=== PATIENT | male | born 1980 | race Caucasian/White ===

== ENCOUNTER 2020-10-02 07:42 | Emergency (ER) | payer OTHER ==
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
[2020-10-02] MEDS ORDERED: LIDOCAINE MPF 1%-EPI 1:200000 10 ML VIAL SUBQ STA (07:53)
[2020-10-02] MEDS ORDERED: LIDOCAINE 1%-EPI 1:100000 20 ML MDV SUBQ STA (08:02)
[2020-10-02] MEDS ORDERED: ACETAMINOPHEN 325 MG TABLET PO STA (09:25)
[2020-10-02] MEDS ORDERED: IBUPROFEN 600 MG TABLET PO STA (09:25)
[2020-10-02] MEDS ORDERED: BACITRACIN ZINC OINT 1 PACKET TOP STA (09:25)
[2020-10-02 09:52] VITALS: BP 163/103
== END 2020-10-02 09:51 | disposition home or self-care (01) ==
LOC: ED 07:42
DX: S81.811A Laceration without foreign body, right lower leg, initial encounter (principal); W20.8XXA Other cause of strike by thrown, projected or falling object, initial encounter; Y93.55 Activity, bike riding; Y92.410 Unspecified street and highway as the place of occurrence of the external cause
CPT/HCPCS: 13121; 99282; A9270